=== PATIENT | male | born 1985 | race Caucasian/White ===

== ENCOUNTER 2024-02-04 11:09 | Emergency (ER) | payer OTHER ==
[~2024-02-04] VITALS: Ht 175.3 cm; Wt 91.6 kg
[2024-02-04 11:11] VITALS: BP 136/82; PULSE 101; RESP 16; TEMP 98.2; O2SAT 100
[2024-02-04] MEDS: IBUPROFEN 800 MG TAB PO ONE (11:33)
[2024-02-04 11:36] VITALS: BP 98/61; PULSE 87; RESP 18; O2SAT 93
[2024-02-04] MEDS ORDERED: CYCL-711 PO (12:18)
[2024-02-04] MEDS ORDERED: IBUP-1842 PO (12:18)
== END 2024-02-04 12:30 | disposition home or self-care (01) ==
LOC: MED 11:09
DX: M54.2 Cervicalgia (principal); Z79.1 Long term (current) use of non-steroidal anti-inflammatories (NSAID); Z79.899 Other long term (current) drug therapy; V89.2XXA Person injured in unspecified motor-vehicle accident, traffic, initial encounter; Y93.89 Activity, other specified; Y92.89 Other specified places as the place of occurrence of the external cause; Y99.8 Other external cause status
CPT/HCPCS: 72050; 99283